=== PATIENT | female | born 1955 | race Hispanic/Latino ===

== ENCOUNTER 2018-07-21 09:20 | Inpatient (IN) | payer OTHER ==
[2018-07-21] MEDS ORDERED: CLINDAMYCIN 600MG/D5W 600 MG/50 ML BAG IV ONE (09:57)
[2018-07-21] MEDS ORDERED: NA CHLORIDE 0.9% 1,000 ML ONE ×4 (09:57→22:45)
[2018-07-21] MEDS ORDERED: ONDANSETRON 4 MG/2 ML VIAL ONE (09:57)
[2018-07-21] MEDS ORDERED: HYDROCODONE/APAP 7.5/325 MG TAB ONE (09:57)
[2018-07-21 10:46] LABS: Potassium 2.6 mmol/L (3.5-5.1)
[2018-07-21 10:48] LABS: Absolute Lymphocytes (CBC) 0.6 K/uL (0.7-4.9); Absolute Monocytes 0.4 K/uL (0.1-1.3); Basophils % 0.1 % (0-1.3); Hematocrit 57.8 % (36.0-45.0); Lymphocytes % 6.5 % (15.3-44.8); MCV 79.3 fL (80-100); MPV 9.8 fL (7.6-11.3); RBC Red Blood Cell Count 7.29 M/uL (3.86-4.86)
[2018-07-21] MEDS ORDERED: POTASSIUM CL SA 10 MEQ TAB PO ONE (10:58)
[2018-07-21] MEDS ORDERED: KCL 20 MEQ/100 mL IVPB 20 MEQ/100 ML BAG IV ONE (10:59)
--- NOTE | 2018-07-21 11:00 | EDPHYS ---
Physician Documentation [facility] Name: Madonna Malone Age: 63 yrs Sex: Female : 1955 Arrival Date: 07/21/2018 Time: 09:21 Bed 6 Private MD: Lily Fairchild ED Physician Keith Senior HPI: 07/21 10:37 This 63 yrs old Female presents to ER via Wheelchair with complaints of Fever, kb Vomiting, Cellulitis-Antibiotics not working. 10:37 The patient presents with cellulitis of the left labia majora and mons pubis. kb Description: erythematous, hot, swollen. Onset: The symptoms/episode began/occurred 6 week(s) ago. Possible cause(s): unknown. Associated signs and symptoms: Pertinent positives: erythema, fever, swelling, Pertinent negatives: discharge, drainage, foreign body sensation, headache, nausea, shortness of breath, vomiting. Modifying factors: the symptoms are alleviated by nothing, the symptoms are aggravated by movement, walking, pressure, touching. Severity of symptoms: At their worst the symptoms were moderate, in the emergency department the symptoms are unchanged. The patient has not experienced similar symptoms in the past. The patient has been recently seen at an urgent care, last week, for similar complaints, was given a prescription for antibiotics. Pt was seen at 3 days ago, diagnosed with cellulitis and put on doxycycline. Pt states swelling and pain are getting worse. Decreased appetite, nausea and vomiting. Historical: - Allergies: 09:42 No Known Allergies; ss - Home Meds: 12:06 Metformin Oral [Active]; Tradjenta oral oral [Active]; Metoprolol Tartrate Oral ph [Active]; loratadine oral oral [Active]; Lisinopril Oral [Active]; Gemfibrozil Oral [Active]; Lexapro Oral [Active]; - PMHx: 12:06 Hypertension; Diabetes - NIDDM; Depression; ph - PSHx: 12:06 Tubal ligation; ph - Immunization history:: Adult Immunizations up to date. - Social history:: Smoking status: Patient/guardian denies using tobacco. - Ebola Screening: : Patient denies exposure to infectious person Patient denies travel to an Ebola-affected area in the 21 days before illness onset. ROS: 10:35 ENT: Negative for injury, pain, and discharge, Neck: Negative for injury, pain, and kb swelling, Cardiovascular: Negative for chest pain, palpitations, and edema, Respiratory: Negative for shortness of breath, cough, wheezing, and pleuritic chest pain, Back: Negative for injury and pain, : Negative for injury, bleeding, discharge, and swelling, MS/Extremity: Negative for injury and deformity, Neuro: Negative for headache, weakness, numbness, tingling, and seizure. 10:35 Constitutional: Positive for chills, fever, malaise, poor PO intake, Negative for body aches, fatigue, weight loss. 10:35 Abdomen/GI: Positive for nausea and vomiting, Negative for abdominal pain, diarrhea, constipation, abdominal cramps, abdominal distension, anorexia. 10:35 Skin: Positive for cellulitis, erythema, swelling, of the mons pubis and left labia majora. Exam: 10:35 Constitutional: This is a well developed, well nourished patient who is awake, alert, kb and in no acute distress. Head/Face: Normocephalic, atraumatic. ENT: Nares patent. No nasal discharge, no septal abnormalities noted. Tympanic membranes are normal and external auditory canals are clear. Oropharynx with no redness, swelling, or masses, exudates, or evidence of obstruction, uvula midline. Mucous membranes moist. Neck: Trachea midline, no thyromegaly or masses palpated, and no cervical lymphadenopathy. Supple, full range of motion without nuchal rigidity, or vertebral point tenderness. No Meningismus. Chest/axilla: Normal chest wall appearance and motion. Nontender with no deformity. No lesions are appreciated. Cardiovascular: Regular rate and rhythm with a normal S1 and S2. No gallops, murmurs, or rubs. Normal PMI, no JVD. No pulse deficits. Respiratory: Lungs have equal breath sounds bilaterally, clear to auscultation and percussion. No rales, rhonchi or wheezes noted. No increased work of breathing, no retractions or nasal flaring. Abdomen/GI: Soft, non-tender, with normal bowel sounds. No distension or tympany. No guarding or rebound. No evidence of tenderness throughout. Back: No spinal tenderness. No costovertebral tenderness. Full range of motion. MS/ Extremity: Pulses equal, no cyanosis. Neurovascular intact. Full, normal range of motion. Neuro: Awake and alert, GCS 15, oriented to person, place, time, and situation. Cranial nerves II-XII grossly intact. Motor strength 5/5 in all extremities. Sensory grossly intact. Cerebellar exam normal. Normal gait. 10:35 Skin: cellulitis, that is moderate, on the left labia majora and mons pubis. Vital Signs: 09:32 Temp 98.7(O); em1 09:42 BP 118 / 74; Pulse 111; Resp 18; Pulse Ox 98% on R/A; Weight 125.19 kg; Height 5 ft. 7 ss in. (170.18 cm); Pain 8/10; 11:54 BP 99 / 59; Pulse 96; Resp 18; Temp 97.8; Pulse Ox 98% on R/A; Pain 5/10; ph 09:42 Body Mass Index 43.23 (125.19 kg, 170.18 cm) ss MDM: 09:33 Patient medically screened. kb 10:35 Data reviewed: vital signs, nurses notes. Data interpreted: Pulse oximetry: on room air kb is 98 %. Interpretation: normal. 10:58 Counseling: I had a detailed discussion with the patient and/or guardian regarding: the kb historical points, exam findings, and any diagnostic results supporting the discharge/admit diagnosis, lab results, the need for further work-up and treatment in the hospital. Physician consultation: Erickson Chirinos MD was contacted at 10:58, regarding admission, to the medical/surgical unit. patient's condition, and will see patient shortly. 07/21 09:33 Order name: CBC with Diff; Complete Time: 11:43 kb 07/21 09:33 Order name: Basic Metabolic Panel; Complete Time: 10:47 kb 07/21 09:33 Order name: Blood Culture Adult (2) kb 07/21 10:56 Order name: CBC Smear Scan; Complete Time: 11:43 EDMS 07/21 11:00 Order name: Urinalysis EDKS 07/21 11:00 Order name: Heart Healthy EDKS 07/21 09:33 Order name: IV Start; Complete Time: 10:10 kb Administered Medications: 10:08 Drug: NS 0.9% 1000 ml Route: IV; Rate: 1000 ml; Site: right hand; ph 10:08 Drug: Zofran 4 mg Route: IVP; Site: right hand; ph 10:09 Drug: Clindamycin 600 mg Route: IVPB; Infused Over: 30 mins; Site: right hand; ph 10:40 Drug: [place] (7.5 mg-325 mg) 1 tabs Route: PO; ph 10:47 CANCELLED (Duplicate Order): Potassium Chloride 20 mEq PO once kb 11:03 Drug: Potassium Chloride 40 mEq Route: PO; ph 11:03 Drug: Potassium Chloride 20 mEq Route: IV; Rate: calculated rate; Site: right hand; ph 12:07 Drug: NS 0.9% 1000 ml Route: IV; Rate: 150 ml/hr; Site: right hand; ph 12:49 Follow up: IV Status: Infusion continued upon admission ss Disposition: 16:42 Co-signature as Attending Physician, Keith Senior MD. rn Disposition: 07/21/18 10:59 Hospitalization ordered by Erickson Chirinos for Inpatient Admission. Preliminary diagnosis are Cellulitis of groin - failed outpatient treatment, Volume depletion, Hypokalemia. - Bed requested for Telemetry/MedSurg (Inpatient). - Status is Inpatient Admission. ss - Condition is Stable. - Problem is new. - Symptoms are unchanged. UTI on Admission? No Signatures: Dispatcher [employer] EDMS Yaquelin Leary, STEVENSON-C OPTICAL ENGINEERING TECHNICIAN-CkLata Tanner Roman, MD MD rn [facility] palomino RN RN ss Hall, Patricia, RN RN ph Corrections: (The following items were deleted from the chart) 10:47 10:47 Potassium Chloride 20 mEq PO once ordered. kb kb 11:39 10:59 Hospitalization Ordered by Erickson Chirinos MD for Inpatient Admission. Preliminary bd diagnosis is Cellulitis of groin - failed outpatient treatment. Bed requested for Telemetry/MedSurg (Inpatient). Status is Inpatient Admission. Condition is Stable. Problem is new. Symptoms are unchanged. UTI on Admission? No. kb 12:40 11:39 07/21/2018 10:59 Hospitalization Ordered by Erickson Chirinos MD for Inpatient kb Admission. Preliminary diagnosis is Cellulitis of groin - failed outpatient treatment. Bed requested for Telemetry/MedSurg (Inpatient). Status is Inpatient Admission. Condition is Stable. Problem is new. Symptoms are unchanged. UTI on Admission? No. bd 12:49 12:40 07/21/2018 10:59 Hospitalization Ordered by Erickson Chirinos MD for Inpatient ss Admission. Preliminary diagnosis is Cellulitis of groin - failed outpatient treatment; Volume depletion; Hypokalemia. Bed requested for Telemetry/MedSurg (Inpatient). Status is Inpatient Admission. Condition is Stable. Problem is new. Symptoms are unchanged. UTI on Admission? No. kb
--- NOTE | 2018-07-21 11:00 | ER ---
Nurse's Notes [facility] Name: Madonna Malone Age: 63 yrs Sex: Female : 1955 Arrival Date: 07/21/2018 Time: 09:21 Bed 6 Private MD: Lily Fairchild Diagnosis: Cellulitis of groin-failed outpatient treatment;Volume depletion;Hypokalemia Presentation: 07/21 09:25 Presenting complaint: Patient states: redness, warm and swelling to groin area that ss began 6 days ago. Patient was seen at urgent care on 07/19/2018 and diagnosed with cellulitis. Patient reports that symptoms have gotten much worse. Transition of care: patient was not received from another setting of care. Onset of symptoms was July 16, 2018. Risk Assessment: Do you want to hurt yourself or someone else? Patient reports no desire to harm self or others. Initial Sepsis Screen: Does the patient meet any 2 criteria? HR > 90 bpm. Does the patient have a suspected source of infection? Yes: Skin breakdown/wound. Care prior to arrival: None. 09:25 Method Of Arrival: Wheelchair ss 09:25 Acuity: TA 3 ss Historical: - Allergies: 09:42 No Known Allergies; ss - Home Meds: 12:06 Metformin Oral [Active]; Tradjenta oral oral [Active]; Metoprolol Tartrate Oral ph [Active]; loratadine oral oral [Active]; Lisinopril Oral [Active]; Gemfibrozil Oral [Active]; Lexapro Oral [Active]; - PMHx: 12:06 Hypertension; Diabetes - NIDDM; Depression; ph - PSHx: 12:06 Tubal ligation; ph - Immunization history:: Adult Immunizations up to date. - Social history:: Smoking status: Patient/guardian denies using tobacco. - Ebola Screening: : Patient denies exposure to infectious person Patient denies travel to an Ebola-affected area in the 21 days before illness onset. Screenin:10 Abuse screen: Denies threats or abuse. Denies injuries from another. Nutritional ph screening: No deficits noted. Tuberculosis screening: No symptoms or risk factors identified. Fall Risk None identified. Assessment: 10:12 General: Appears in no apparent distress. uncomfortable, Behavior is calm, cooperative, ph appropriate for age. Pain: Complains of pain in groin. Neuro: Level of Consciousness is awake, alert, obeys commands, Oriented to person, place, time, situation. Cardiovascular: Capillary refill < 3 seconds in bilateral fingers Patient's skin is warm and dry. Respiratory: Airway is patent Respiratory effort is even, unlabored. GI: Abdomen is round non-distended, obese, Bowel sounds present X 4 quads. Abd is soft and non tender X 4 quads. Reports nausea, vomiting. Derm: Skin is healthy with good turgor, Skin is pink, warm \T\ dry. Musculoskeletal: Circulation, motion, and sensation intact. Range of motion: intact in all extremities. 11:54 Reassessment: Patient appears in no apparent distress at this time. Patient and/or ph family updated on plan of care and expected duration. Pain level reassessed. Patient is alert, oriented x 3, equal unlabored respirations, skin warm/dry/pink. 12:45 Reassessment: Report called to LUDWIG Gunderson. Vital Signs: 09:32 Temp 98.7(O); em1 09:42 BP 118 / 74; Pulse 111; Resp 18; Pulse Ox 98% on R/A; Weight 125.19 kg; Height 5 ft. 7 ss in. (170.18 cm); Pain 8/10; 11:54 BP 99 / 59; Pulse 96; Resp 18; Temp 97.8; Pulse Ox 98% on R/A; Pain 5/10; ph 09:42 Body Mass Index 43.23 (125.19 kg, 170.18 cm) ED Course: 09:21 Patient arrived in ED. as 09:21 Lily Fairchild MD is Private Physician. as 09:23 Yaquelin Leary FNP-C is [facility]. kb 09:23 Keith Senior MD is Attending Physician. kb 09:41 Triage completed. ss 09:42 Arm band placed on right wrist. ss 09:48 Dunia Griggs RN is Primary Nurse. ph 09:55 Inserted saline lock: 22 gauge in right hand, using aseptic technique. ph 10:11 Patient has correct armband on for positive identification. Placed in gown. Bed in low ph position. Call light in reach. Side rails up X 1. Pulse ox on. NIBP on. Warm blanket given. Pillow given. 10:59 Erickson Chirinos MD is Hospitalizing Provider. kb 12:47 No provider procedures requiring assistance completed. Patient admitted, IV remains in ss place. Administered Medications: 10:08 Drug: NS 0.9% 1000 ml Route: IV; Rate: 1000 ml; Site: right hand; ph 10:08 Drug: Zofran 4 mg Route: IVP; Site: right hand; ph 10:09 Drug: Clindamycin 600 mg Route: IVPB; Infused Over: 30 mins; Site: right hand; ph 10:40 Drug: [place] (7.5 mg-325 mg) 1 tabs Route: PO; ph 10:47 CANCELLED (Duplicate Order): Potassium Chloride 20 mEq PO once kb 11:03 Drug: Potassium Chloride 40 mEq Route: PO; ph 11:03 Drug: Potassium Chloride 20 mEq Route: IV; Rate: calculated rate; Site: right hand; ph 12:07 Drug: NS 0.9% 1000 ml Route: IV; Rate: 150 ml/hr; Site: right hand; ph 12:49 Follow up: IV Status: Infusion continued upon admission Outcome: 10:59 Decision to Hospitalize by Provider. kb 12:47 Admitted to Med/surg accompanied by tech, family with patient, via stretcher, room 220, with chart, Report called to LUDWIG Gunderson 12:47 Condition: good 12:47 Instructed on the need for admit, Demonstrated understanding of instructions. 12:49 Patient left the ED. Signatures: Yaquelin Leary, COGNOS ADMINISTRATOR-C COGNOS ADMINISTRATOR-Nurys Deleon Eric em1 Octavia Marie RN RN Dunia Griggs RN RN ph
[2018-07-21 11:40] LABS: Blood Morphology Comment NOT SEEN (NOT SEEN); Platelet Estimate ADEQ; Urine White Blood Cell Casts OK
[2018-07-21] MEDS ORDERED: GLUCAGON 1 MG/VIAL IM PRN ×2 (14:12→14:14)
[2018-07-21] MEDS ORDERED: D50W 25 GM/50 ML SYRINGE IV PRN ×2 (14:12→14:14)
--- NOTE | 2018-07-21 14:26 | P.HP ---
Certification for Inpatient Patient admitted to: Inpatient With expected LOS: >2 Midnights Patient will require the following post-hospital care: None Practitioner: I am a practitioner with admitting privileges, knowledge of patient current condition, hospital course, and medical plan of care. Services: Services provided to patient in accordance with Admission requirements found in Title 42 Section 412.3 of the Code of Federal Regulations Patient History Date of Service: 07/21/18 Reason for admission: cellulitis History of Present Illness: 63 y/o female with h/o DM who came to ER because of infection ijn her left groin /labia area. She has redness and edema for one week. She went to see urgent care 3 days ago and was given Bactrim DS. She took it for 2 days without improvement and went to ER. She is admitted for further treatment. She has no fever chills. She has poor po intake for several days. Allergies No Known Allergies Allergy (Unverified 07/21/18 11:59) Home Medications: Escitalopram Oxalate [Lexapro] 20 mg PO DAILY 07/21/18 Gemfibrozil [Lopid] 600 mg PO BID 07/21/18 Linagliptin [Tradjenta] 5 mg PO DAILY 07/21/18 Lisinopril/Hydrochlorothiazide [Zestoretic 20-25 mg Tablet] 1 each PO DAILY 07/30 Loratadine 10 mg PO DAILY 07/21/18 Metformin HCl 1,000 mg PO BID 07/21/18 Metoprolol Tartrate [Lopressor] 50 mg PO DAILY 07/21/18 - Past Medical/Surgical History Has patient received pneumonia vaccine in the past: No Diabetic: Yes -: Hypertension -: DM -: Hyperlipidemia -: Tubal ligation - Family History Father -: Hypertension Mother -: Heart disease, Hypertension - Social History Smoking Status: Never smoker Alcohol use: No CD- Drugs: No Caffeine use: No Place of Residence: Home Review of Systems 10-point ROS is otherwise unremarkable Physical Examination - Vital Signs Temperature: 97.5 F Blood Pressure: 125/72 Pulse: 98 Respirations: 18 Pulse Ox (%): 97 - Physical Exam General: Alert, In no apparent distress HEENT: Atraumatic, PERRLA, Mucous membr. moist/pink, EOMI, Sclerae nonicteric Neck: Supple, 2+ carotid pulse no bruit, No LAD, Without JVD or thyroid abnormality Respiratory: Clear to auscultation bilaterally, Normal air movement Cardiovascular: Regular rate/rhythm, Normal S1 S2 Gastrointestinal: Normal bowel sounds, No tenderness Musculoskeletal: No tenderness Integumentary: No rashes Neurological: Normal gait, Normal speech, Normal strength at 5/5 x4 extr, Normal tone, Normal affect Lymphatics: No axilla or inguinal lymphadenopathy External genitalia: Other (significant edema and tender from left labia to left groin area. No abscess appreciated) - Studies Laboratory Data (last 24 hrs) 07/21/18 09:50: Sodium 134 L, Potassium 2.6 L*, BUN 25 H, Creatinine 1.30, Glucose 191 H 07/21/18 09:50: WBC 9.0, Hgb 19.7 H, Hct 57.8 H, Plt Count 106 L Assessment and Plan - Problems (Diagnosis) (1) Cellulitis Current Visit: Yes Status: Acute Qualifiers: Site of cellulitis of trunk: groin - Plan --Start IV VAnco Zosyn --Wait blood cx/s --CT scan r/o abscess --Lantus and Insulin; Hold Metformin --IVF and KCL replacement; Recheck K today --DVT prophylaxis - Advance Directives Does patient have a Living Will: No Does patient have a Durable POA for Healthcare: No
[2018-07-21] MEDS: Ringers Lactate 1,000 ML IV SCH ×2 (14:52→23:36)
[2018-07-21] MEDS: VANCOMYCIN 2 GM in NA CHLORIDE 0.9% 500 ML IVPB SCH (15:28)
[2018-07-21 15:55] LABS: Urine Appearance CLOUDY; Urine Blood NEGATIVE (NEG); Urine Color DK YELLOW; Urine Glucose NEGATIVE (NEG); Urine Protein 1+ (NEG); Urine Specific Gravity 1.025 (1.005-1.030); Urine pH 5.5 (5.0-7.0)
[2018-07-21 16:07] LABS: Urine Bilirubin NEGATIVE (NEG); Urine Microscopic Reflex ORDER UMIC
[2018-07-21 16:15] LABS: Urine Bacteria <20 /HPF (<20); Urine RBC <5 /HPF (NONE SEEN)
[2018-07-21 16:16] LABS: Urine Amorphous Sediment TRACE /HPF (NONE SEEN); Urine Culture Reflex Order NOT NEEDED; Urine Mucus SLIGHT /HPF (NONE SEEN)
[2018-07-21] MEDS: INSULIN -REGULAR HUMAN 50 UNIT/0.5 ML ML SQ SCH ×2 (16:30→20:59)
[2018-07-21] MEDS: ENOXAPARIN 30 MG/0.3 ML SQ SCH (17:00)
[2018-07-21] MEDS: PIPER/TAZO/NS 3.375gm 3.375 GM/100 ML BAG IV SCH (17:09)
--- NOTE | 2018-07-21 18:23 | RAD REPORT ---
EXAM DESCRIPTION: CT - Pelvis W/Cont - 07/21/2018 5:33 pm CLINICAL HISTORY: Cellulitis in the perineum, possible abscess COMPARISON: None. TECHNIQUE: Following nonionic IV contrast, axial 5 millimeter thick images of the pelvis were obtain ed. No oral contrast administered. The CT scan was performed using dose optimization techniques as appropriate to a performed exam incl uding one or more of the following: Automated exposure control, adjustment of the mA and/or kV accord ing to patient size (this includes techniques or standardized protocols for targeted exams where dose is matched to indication/reason for exam) and use of iterative reconstruction technique. FINDINGS: Within the lower peritoneal and retroperitoneal spaces there is no acute bowel finding. No free air, free fluid or inflammatory stranding. Urinary bladder, uterus and ovaries show no suspicio us findings. In the left-side of the perineum within the subcutaneous fat and continuing anteriorly along the ante rior aspect of the pubic symphysis there is an extensive air within the fatty tissues. Left-side labi al tissues are thickened and edematous and displaced towards the right. There is edema and stranding in the fatty tissues of the perineum and mons pubis. Stranding extends to the skeletal musculature al robles the medial upper left thigh. No intramuscular mass or hematoma seen. Available history indicates there has been no debridement or drainage procedure performed. The extent of free air and stranding could indicate a Benoit's gangrene. No drainable fluid collections seen. No erosive or destructive bony process. Findings were telephoned to the referring physician 6:15 p.m.. IMPRESSION: Large amount of air and edematous/inflammatory stranding in the fatty tissues in the lef t-side perineum continuing anteriorly and superiorly along the anterior margin of the pubic symphysis . 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 No drainable fluid collection. No extension into the peritoneal or retroperitoneal spaces of the lower pelvis.
[2018-07-21] MEDS: HYDROCODONE/APAP 10/325 TAB PO PRN (18:36)
[2018-07-21 18:39] LABS: Potassium 2.7 mmol/L (3.5-5.1)
[2018-07-21 20:25] LABS: Albumin 2.4 g/dL (3.4-5.0); Bilirubin Direct 0.3 mg/dL (0-0.2); Bilirubin Total 0.6 mg/dL (0.2-1.0); Protein, Total 7.3 g/dL (6.4-8.2)
[2018-07-21] MEDS: GEMFIBROZIL 600 MG TAB PO SCH (20:25)
[2018-07-21] MEDS: KCL 20 MEQ/100 mL IVPB 20 MEQ/100 ML BAG IV SCH ×2 (20:25→23:36)
[2018-07-21] MEDS ORDERED: PROPOFOL 200 MG/20 ML VIAL IV ONE (20:58)
[2018-07-21] MEDS: INSULIN GLARGINE 100 UNITS/ML SQ SCH (20:59)
[2018-07-21] MEDS ORDERED: FENTANYL CITR 100 MCG/2 ML ONE ×2 (20:59→22:12)
[2018-07-21] MEDS ORDERED: VANCOMYCIN 1GM/D5W 200 ML IV SCH (21:00)
[2018-07-21] MEDS ORDERED: DEXAMETHASONE 4 MG/ML VIAL ONE (21:12)
[2018-07-21] MEDS ORDERED: SUCCINYLCHOLINE 20 MG/ML (10 ML) IV ONE (21:12)
--- NOTE | 2018-07-21 21:12 | P.CNS ---
Date of Consult: 07/21/18 PC: This 63-year-old female presents to the emergency room with pain in her left groin and feeling unwell. HPC: Patient has had pain and tenderness in her left groin for the last few days. Has been seen appears clinics and was on oral antibiotics. However she feels is getting larger, still causing increasing pain and discomfort as well as making her feel sick. PMH: Diabetes DN, hypertension PSHx: Previous tubal ligation SOC: No known allergies (medication list reviewed) SYS REVIEW: No cough, wheeze, shortness of breath. No chest pain or palpitations. Just as feel weak over the last few days and sick in general. O/E awake alert vital signs stable HEENT: Not jaundice Chest: Clear ABD: Soft nontender Genitalia: Large amount of swelling to the left labia majora up into the mons LOCO: Intact DATA: CT scan demonstrates considerable abscess with air in the subcutaneous tissue IMPRESSION: Founieres gangrene PLAN: I will to the operating room for incision, drainage, and wipe sharp debridement of this abscess in her left groin. The risks of this procedure have been discussed. The possibility of bleeding, infection, further spread, need for further surgeries and procedures was discussed. She understands and wants to proceed
[2018-07-21] MEDS ORDERED: ROCURONIUM 50 MG/5 ML VIAL IV ONE (21:18)
[2018-07-21] MEDS ORDERED: KETOROLAC 30 MG/ML INJ ONE (21:49)
[2018-07-21] MEDS ORDERED: ONDANSETRON HCL 40 MG/20 ML VIAL ONE (21:49)
[2018-07-21] MEDS ORDERED: HYDRALAZINE HCL 20 MG/ML VIAL ONE (21:58)
[2018-07-21] MEDS ORDERED: METOPROLOL TARTRATE 5 MG/5 ML INJ IV ONE (21:59)
[2018-07-21] MEDS ORDERED: NEOSTIGMINE 1 MG/ML -5 ML SYRINGE ONE (22:05)
[2018-07-21] MEDS ORDERED: GLYCOPYRROLATE 0.2 MG/ML SYR ONE (22:05)
--- NOTE | 2018-07-21 22:36 | P.OP ---
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 With the patient in lithotomy, palpation of the left labia revealed it was firm with miles amount of crepitus fell. AE incision was made in the labia parallel to the groin crease. This brought down through the skin and subcutaneous tissue. We actually encounter air in the tissue that was under pressure we could hear testing as we entered it with the 11 blade. This wound was now extended all the way from the perineal body area up to the superior portion of the mons on the lateral left side. The underlying tissue was noted to have areas of total necrosis with foul-smelling tissue and in the area. This tissue was sharply debrided using a 10 blade and a pickups. It extended all the way from the perineal body area up to the mons itself. This was excise using a 10 blade. Having cleared it back medially to viable tissue, we traced it out laterally could see that it extended up to the inguinal ligament. The area of the external ring was noted and the insertion of the round ligament into the mons area out was excise again with 11 blade removing all this necrotic fatty tissue. The wound was now inspected to ensure adequate hemostasis. There were small petechial capillary hemorrhages. These were controlled using electro cautery. Finally a piece of Surgicel cotton was placed into the base of the wound, and a Kerlix roll soaked in Betadine was packed into it to loosely feel this cavity. The overload the tissue was then approximated back over this loosely. A dressing was then applied. At the end of procedure she was stable when sent to the recovery room. Needle sponge instrument count were correct. No drains were placed. Complications: None Transferred to: Recovery Room Condition: Good
[2018-07-22] MEDS: HYDROCODONE/APAP 10/325 TAB PO PRN (00:24)
[2018-07-22] MEDS: INSULIN GLARGINE 100 UNITS/ML SQ SCH ×2 (00:24→21:16)
[2018-07-22] MEDS: INSULIN -REGULAR HUMAN 50 UNIT/0.5 ML ML SQ SCH ×5 (00:25→21:17)
[2018-07-22] MEDS: PIPER/TAZO/NS 3.375gm 3.375 GM/100 ML BAG IV SCH ×3 (00:36→17:39)
[2018-07-22] MEDS ORDERED: NA CHLORIDE 0.9% 500 ML IV ONE ×2 (01:14→02:46)
[2018-07-22] MEDS ORDERED: NA CHLORIDE 0.9% 500 ML ONE (01:21)
[2018-07-22] MEDS ORDERED: KCL 20 MEQ/100 mL IVPB 20 MEQ/100 ML BAG IV SCH ×2 (01:30→05:00)
[2018-07-22] MEDS ORDERED: NOREPINEPHRINE 4 MG in D5W 250 ML IV PRN (02:46)
[2018-07-22] MEDS: Ringers Lactate 1,000 ML IV SCH ×3 (02:50→17:39)
[2018-07-22 03:31] LABS: Absolute Lymphocytes (CBC) 0.5 K/uL (0.7-4.9); Absolute Monocytes 0.7 K/uL (0.1-1.3); Basophils % 0.1 % (0-1.3); Eosinophils % 0.2 % (0-4.4); Hematocrit 27.3 % (36.0-45.0); Lymphocytes % 3.2 % (15.3-44.8); MCH 27.2 pg (27.0-35.0); MCV 79.9 fL (80-100); MPV 10.2 fL (7.6-11.3); Monocytes % 4.3 % (3.3-12.3); RBC Red Blood Cell Count 3.42 M/uL (3.86-4.86)
[2018-07-22] MEDS ORDERED: NOREPINEPHRINE 4 MG/4 ML VIAL ONE (03:41)
[2018-07-22] MEDS ORDERED: D5W 250 ML IV ONE (03:42)
[2018-07-22 03:45] LABS: Albumin 1.8 g/dL (3.4-5.0); Bilirubin Total 0.5 mg/dL (0.2-1.0); Potassium 3.8 mmol/L (3.5-5.1); Protein, Total 5.8 g/dL (6.4-8.2)
[2018-07-22] MEDS ORDERED: MAGNESIUM SULFATE 1 gm IVPB 1 GM/100 ML BAG IV ONE (03:45)
[2018-07-22] MEDS ORDERED: CALCIUM GLUC 10% INJ 4.65 MEQ in NA CHLORIDE 0.9% 100 ML IV ONE (03:59)
[2018-07-22 04:55] LABS: Blood Morphology Comment NOT SEEN (NOT SEEN); Platelet Estimate ADEQ
[2018-07-22] MEDS ORDERED: CALCIUM GLUCONATE 1 GM IVPB 1 GM/50 ML BAG IV ONE (04:59)
--- NOTE | 2018-07-22 07:54 | RAD REPORT ---
EXAM DESCRIPTION: RAD - Chest Single View - 07/22/2018 2:40 am CLINICAL HISTORY: PICC line placement A preliminary report was provided at the time of the study and reviewed prior to final report. COMPARISON: None. FINDINGS: Portable chest was obtained following placement of a right upper extremity PICC line. The catheter tip is in the proximal SVC.
[2018-07-22] MEDS ORDERED: METOPROLOL TAR 50 MG TAB PO SCH (09:00)
[2018-07-22] MEDS: GEMFIBROZIL 600 MG TAB PO SCH ×2 (09:27→21:16)
[2018-07-22] MEDS: ESCITALOPRAM 20 MG TAB PO SCH (09:27)
[2018-07-22] MEDS ORDERED: PROPOFOL 200 MG/20 ML VIAL IV ONE (12:54)
[2018-07-22] MEDS ORDERED: LIDOCAINE 1% MPF 2 ML AMPULE ONE ×2 (12:54→12:55)
[2018-07-22] MEDS ORDERED: FENTANYL CITR 100 MCG/2 ML ONE (12:56)
[2018-07-22] MEDS ORDERED: NA CHLORIDE 0.9% 1,000 ML ONE (13:31)
[2018-07-22] MEDS ORDERED: MIDAZOLAM HCL 2 MG/2 ML INJ ONE (13:31)
--- NOTE | 2018-07-22 14:24 | CON ---
INFECTIOUS DISEASE CONSULT. 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 The patient also already had surgical debridement done to the left vulvar region. The patient is cur rently being treated with vancomycin and Zosyn. She has significant past medical history of diabetes mellitus, hypertension, hypercholesterolemia, and depression. As per patient, her symptoms started about 2 weeks ago. Normally, she has a pad for preventing accidental incontinence of urine. The pat ient denies any headache, nausea, vomiting, chest pain, abdominal pain. Having discomfort in the per ineal area status post surgery. The patient otherwise doing better today. The pain has decreases th en. Past Medical History: As per HPI. Surgical History: Tubal ligation 26 years ago. Social History: Nonsmoker, nondrinker. Family History: Noncontributory. Medications: Vancomycin, Zosyn. See MARs for other medication. Allergies: NO KNOWN DRUG ALLERGIES. Review of Systems: A 10-point review was performed. Physical Examination: General: This is a 63-year-old female, lying in bed, not in any acute cardiopulmonary distress. Vital Signs: Temperature 98, pulse 68, respiration 15, blood pressure 112/59. HEENT: Unremarkable. Neck: Supple. Lungs: Basal crackles. Heart: S1, S2. Regular. Abdomen: Soft. Bowel sounds present. Extremity: No edema. Swelling and erythematous changes noted in the perineal area, especially vulvar region. Left vulvar region with surgical wound and fresh gauze packing which has blood on it. No foul smell. Ambriz cath eter in place. IV line in place. Laboratory Data: Shows WBC 15,000, hemoglobin 9.3, platelets are 203. Chemistry shows sodium 134, p otassium 3.8, chloride 103, bicarb 26, BUN 19, creatinine 0.8, glucose is 227. Blood cultures and wo und cultures are pending. Pelvis CT shows that the patient has large amount of air and edematous inf lammatory stranding in the fatty tissue in the left side of perineum continuing anteriorly and superi sowmya along the anterior margins of the pubic symphysis. Chest x-ray done today shows portable chest with right extremity PICC line in place. No infiltrates. 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 Leukocyt osis. Pending culture results. Agree to continue Zosyn and vancomycin. Improve nutrition. The pat ient was instructed better control of sugars. We will follow the patient closely. NF/MODL Voice ID: [id number] Report ID: [id number]
--- NOTE | 2018-07-22 15:16 | P.OP ---
Preoperative diagnosis: Complex surgical wound of left groin Postoperative diagnosis: The same Primary procedure: Exploration and debridement of complex surgical wound of left groin Anesthesia: General Estimated blood loss: Less than 10 cc Findings: Clean the wound bed of complex surgical room with small areas of necrosis Operative Technique: The patient brought the Amanda to the operating room placed supine on the table general endotracheal anesthesia, the patient was placed in lithotomy position. The wound that had been placed yesterday evening was now removed. The area of the left groin was prepped with a Betadine solution, and draped in usual aseptic manner. (The Ambriz catheter is still remains) Attention was turned towards the base of this complex surgical wound. There were small areas of necrosis seen on the medial aspect of the wound. These were grasped with a pickups, and sharply excised with a little cutting 11 blade. The wound was fall around its circumference. The medial aspect was reflected back to was to see underneath this flap of fatty tissue. Adequate hemostasis, and debridement having been done, the wound was again packed it lightly with a Kerlix roll soaked in Betadine. A sterile dressing was applied over this. At the end of the procedure she was stable when sent to the recovery room. Needle sponge instrument count were correct. No drains were placed. Complications: None Transferred to: Recovery Room Condition: Good
[2018-07-22] MEDS: VANCOMYCIN 2 GM in NA CHLORIDE 0.9% 500 ML IVPB SCH (15:18)
--- NOTE | 2018-07-22 17:23 | P.PN ---
Subjective Date of Service: 07/22/18 Chief Complaint: cellulitis she is doing better afte I/D and debridement Physical Examination - Vital Signs Temperature: 97 F Blood Pressure: 102/53 Pulse: 82 Respirations: 14 Pulse Ox (%): 95 - Physical Exam General: Alert, In no apparent distress HEENT: Atraumatic, PERRLA, EOMI Neck: Supple, JVD not distended Respiratory: Clear to auscultation bilaterally, Normal air movement Cardiovascular: Regular rate/rhythm, Normal S1 S2 Gastrointestinal: Normal bowel sounds, No tenderness Musculoskeletal: No tenderness Integumentary: No rashes Neurological: Normal speech, Normal tone, Normal affect Lymphatics: No axilla or inguinal lymphadenopathy - Studies Medications List Reviewed: Yes Assessment And Plan - Current Problems (Diagnosis) (1) Gangrene Current Visit: Yes Status: Acute (2) Cellulitis Onset Date: 07/22/18 Current Visit: Yes Status: Acute Qualifiers: Site of cellulitis of trunk: groin - Plan --s/p I/D --Cont IV VAnco Zosyn --Pending wound and blood cx/s --Lantus and Insulin; Hold Metformin --IVF and KCL replacement --DVT prophylaxis --Surgery and ID on board
[2018-07-22] MEDS: ENOXAPARIN 30 MG/0.3 ML SQ SCH (17:39)
[2018-07-23] MEDS: PIPER/TAZO/NS 3.375gm 3.375 GM/100 ML BAG IV SCH ×4 (01:22→23:59)
[2018-07-23] MEDS: Ringers Lactate 1,000 ML IV SCH ×3 (02:39→20:05)
[2018-07-23] MEDS: HYDROCODONE/APAP 10/325 TAB PO PRN ×4 (02:42→20:06)
[2018-07-23 05:10] LABS: Absolute Lymphocytes (CBC) 1.3 K/uL (0.7-4.9); Absolute Monocytes 0.8 K/uL (0.1-1.3); Absolute Neutrophil 8.2 K/uL (1.8-8.0); Basophils % 0.2 % (0-1.3); Eosinophils % 0.3 % (0-4.4); Hematocrit 24.3 % (36.0-45.0); Lymphocytes % 12.2 % (15.3-44.8); MCH 27.4 pg (27.0-35.0); MCV 78.6 fL (80-100); MPV 10.1 fL (7.6-11.3); Monocytes % 7.3 % (3.3-12.3); RBC Red Blood Cell Count 3.09 M/uL (3.86-4.86)
[2018-07-23 05:29] LABS: Albumin 1.7 g/dL (3.4-5.0); Bilirubin Total 0.2 mg/dL (0.2-1.0); Protein, Total 5.5 g/dL (6.4-8.2)
[2018-07-23] MEDS ORDERED: POTASSIUM CL SA 10 MEQ TAB PO ONE (07:59)
[2018-07-23] MEDS: INSULIN -REGULAR HUMAN 50 UNIT/0.5 ML ML SQ SCH ×4 (08:12→20:07)
[2018-07-23] MEDS: GEMFIBROZIL 600 MG TAB PO SCH ×2 (08:12→20:06)
[2018-07-23] MEDS: ESCITALOPRAM 20 MG TAB PO SCH (08:12)
[2018-07-23] MEDS: VANCOMYCIN 2 GM in NA CHLORIDE 0.9% 500 ML IVPB SCH (15:00)
--- NOTE | 2018-07-23 15:08 | P.PN ---
Subjective Date of Service: 07/23/18 Chief Complaint: cellulitis Patient seen and examined at bedside with RN. Chart reviewed. Case discussed with general surgery. Improvement at this time. Review of Systems 10-point ROS is otherwise unremarkable Physical Examination - Vital Signs Temperature: 97.2 F Blood Pressure: 107/54 Pulse: 75 Respirations: 17 Pulse Ox (%): 100 - Physical Exam General: Alert, In no apparent distress, Oriented x3 HEENT: Atraumatic, PERRLA, EOMI Neck: Supple, JVD not distended Respiratory: Clear to auscultation bilaterally, Normal air movement Cardiovascular: Regular rate/rhythm, Normal S1 S2 Gastrointestinal: Normal bowel sounds, No tenderness Musculoskeletal: No tenderness Integumentary: Tenderness/swelling, Erythema, Warmth Neurological: Normal speech, Normal tone, Normal affect Lymphatics: No axilla or inguinal lymphadenopathy External genitalia: Edema - Studies Medications List Reviewed: Yes Assessment And Plan - Current Problems (Diagnosis) (1) Cellulitis Onset Date: 07/22/18 Current Visit: Yes Status: Acute Plan: Left sided Fornier Disease involving the vulva and Perineal area -General Surgery Consutled. Appreciate rec -S/p I&D POD # 1 -IV vanc and redd for now -F.u with Culture Qualifiers: Site of cellulitis of trunk: groin (2) Gangrene Current Visit: Yes Status: Acute Plan: See # 1 Discharge Plan: Home Plan to discharge in: 48 Hours - Code Status/Comfort Care Code Status Assessed: Yes Critical Care: Yes
[2018-07-23] MEDS ORDERED: NOREPINEPHRINE 4 MG in D5W 250 ML IV PRN (15:10)
--- NOTE | 2018-07-23 15:37 | P.PN ---
Date of Service: 07/23/18 S: Patient has no complaints, asking for more solid diet. Pain is controlled. O: The dressing removed, wound is clean. Appears viable. A: Surgically stable P: Wound was changed today to just try Kerlix. Tomorrow I will place a wound VAC with Adaptic incidental. I anticipate leaving that for 48 hr and take care to the operating room for partial closure of this complex surgical wound. Have discussed this with the patient in her family. They understand. She will also get up and ambulate, she appears to be stable enough for transfer to the floor. They are content with the treatment so far.
[2018-07-23 16:05] LABS: Potassium 3.3 mmol/L (3.5-5.1)
[2018-07-23] MEDS ORDERED: POTASSIUM 25 MEQ EFFERV TAB PO ONE (17:00)
[2018-07-23] MEDS: VANCOMYCIN 2.25 GM in NA CHLORIDE 0.9% 500 ML IVPB SCH (17:08)
[2018-07-23] MEDS: ENOXAPARIN 30 MG/0.3 ML SQ SCH (17:08)
[2018-07-23] MEDS: INSULIN GLARGINE 100 UNITS/ML SQ SCH (20:06)
[2018-07-24] MEDS ORDERED: POTASSIUM CL SA 10 MEQ TAB PO ONE ×2 (01:17→06:37)
[2018-07-24] MEDS: Ringers Lactate 1,000 ML IV SCH ×3 (01:59→18:00)
[2018-07-24] MEDS: HYDROCODONE/APAP 10/325 TAB PO PRN (02:04)
[2018-07-24 06:31] LABS: BUN Blood Urea Nitrogen 7 mg/dL (7-18); Bicarbonate 31 mmol/L (21-32); Glucose Level 107 mg/dL (74-106); Potassium 3.8 mmol/L (3.5-5.1); Sodium Level 141 mmol/L (136-145)
[2018-07-24 06:44] LABS: Magnesium 1.9 mg/dL (1.8-2.4)
[2018-07-24] MEDS: INSULIN -REGULAR HUMAN 50 UNIT/0.5 ML ML SQ SCH ×4 (07:30→22:10)
[2018-07-24] MEDS: COLLAGENASE 30 GM OINTMENT TOP SCH (09:00)
[2018-07-24] MEDS: GEMFIBROZIL 600 MG TAB PO SCH ×2 (09:26→22:10)
[2018-07-24] MEDS: ESCITALOPRAM 20 MG TAB PO SCH (09:26)
[2018-07-24] MEDS: PIPER/TAZO/NS 3.375gm 3.375 GM/100 ML BAG IV SCH ×2 (10:26→18:14)
--- NOTE | 2018-07-24 14:08 | P.PN ---
Subjective Date of Service: 07/24/18 Chief Complaint: cellulitis Patient seen and examined at bedside with RN. Chart reviewed. Case discussed with general surgery. Improvement at this time. Review of Systems 10-point ROS is otherwise unremarkable Physical Examination - Vital Signs Temperature: 97 F Blood Pressure: 119/56 Pulse: 80 Respirations: 18 Pulse Ox (%): 96 - Physical Exam General: Alert, In no apparent distress HEENT: Atraumatic, PERRLA, EOMI Neck: Supple, JVD not distended Respiratory: Clear to auscultation bilaterally, Normal air movement Cardiovascular: Regular rate/rhythm, Normal S1 S2 Gastrointestinal: Normal bowel sounds, No tenderness Musculoskeletal: No tenderness Integumentary: Other (Extensively to the perineal area on the left side noted. Improvement from before. No purulent discharge noted.) Neurological: Normal speech, Normal tone, Normal affect Lymphatics: No axilla or inguinal lymphadenopathy - Studies Medications List Reviewed: Yes Assessment And Plan - Current Problems (Diagnosis) (1) Cellulitis Onset Date: 07/22/18 Current Visit: Yes Status: Acute Plan: Left sided Fornier Disease involving the vulva and Perineal area -General Surgery Consutled. Appreciate reccs -S/p I&D POD # 2 -IV vanc and redd for now -F.u with Culture concerning for necrotizing fasciae Qualifiers: Site of cellulitis of trunk: groin (2) Gangrene Current Visit: Yes Status: Acute Plan: See # 1 - Plan Patient's other problems include 1. Morbid obesity 2. Hypertension 3. Hyperlipidemia 4. Sepsis 5. Possible necrotizing fasciitis Discharge Plan: Other Plan to discharge in: 72 Hours - Code Status/Comfort Care Code Status Assessed: Yes Critical Care: No
[2018-07-24] MEDS: VANCOMYCIN 2.25 GM in NA CHLORIDE 0.9% 500 ML IVPB SCH (18:14)
[2018-07-24] MEDS: ENOXAPARIN 30 MG/0.3 ML SQ SCH (18:14)
--- NOTE | 2018-07-24 18:39 | PN ---
Subjective: The patient is lying in bed. Continues to have discomfort in the perineal area. The shalini owens also had surgical debridement done yesterday by surgical team. Objective: Vital Signs: Temperature 97.3, pulse 74, respiration 18, blood pressure 124/66. Lungs: Clear to auscultation. Heart: S1, S2. Regular. Abdomen: Soft. Bowel sounds present. : Perineal area with left vulvar region wound noted. Good granulation tissue. Moderate amount of discharge. No foul smell. Laboratory Data: Shows WBC 10,000, hemoglobin 8.5, platelets are 239. Chemistry shows sodium 141, p otassium 3.8, chloride 104, bicarb 31, BUN 7, creatinine 0.5, glucose 107. Micro Data: Blood cultures, no growth in 24 hours. Wound cultures, gram-positive cocci in pairs and chains, most likely strep. Assessment And Plan: The patient is currently being treated with vancomycin and Zosyn for left vulva r and perineal area necrotizing fasciitis, status post debridement. Leukocytosis is improving. The patient continues to have pain. Recommend to apply lidocaine gel before changing the dressing. Also recommend to put Medihoney with alginate to the wound site. Continue antibiotic and supportive care . Consider long-term acute care. We will follow the patient as needed. NF/MODL Voice ID: [id number] Report ID: [id number]
[2018-07-24] MEDS ORDERED: MORPHINE 5 MG/ML VIAL IV ONE (19:09)
[2018-07-24] MEDS: INSULIN GLARGINE 100 UNITS/ML SQ SCH (22:11)
--- NOTE | 2018-07-24 22:43 | P.PN ---
Date of Service: 07/24/18 S: Patient has no complaints, asking for more solid diet. Pain is controlled. O: T dressing is intact, no erythema seen A: Surgically stable P: I have decided weight 1 more day before applying the wound VAC. I am concerned that in AE anaerobic in [place] that there is potential that her infection could flare up. I think tomorrow we will place the wound VAC. Hopefully will be able to prep the wound bed and perhaps back to the OR on Sunday or Sunday for approximation of these tissue would be appropriate. The patient is stable, and may benefit from transfer to a possible swing bed. I will discuss with the human services case manager in the morning.
[2018-07-25] MEDS: PIPER/TAZO/NS 3.375gm 3.375 GM/100 ML BAG IV SCH ×3 (02:07→16:45)
[2018-07-25] MEDS: Ringers Lactate 1,000 ML IV SCH ×3 (05:34→21:05)
[2018-07-25 06:29] LABS: BUN Blood Urea Nitrogen 5 mg/dL (7-18); Bicarbonate 32 mmol/L (21-32); Glucose Level 116 mg/dL (74-106); Potassium 4.4 mmol/L (3.5-5.1); Sodium Level 143 mmol/L (136-145)
[2018-07-25] MEDS: INSULIN -REGULAR HUMAN 50 UNIT/0.5 ML ML SQ SCH ×4 (07:30→21:02)
[2018-07-25] MEDS: COLLAGENASE 30 GM OINTMENT TOP SCH (09:00)
[2018-07-25] MEDS: ESCITALOPRAM 20 MG TAB PO SCH (09:30)
[2018-07-25] MEDS: GEMFIBROZIL 600 MG TAB PO SCH ×2 (09:30→21:02)
--- NOTE | 2018-07-25 13:58 | P.PN ---
Subjective Date of Service: 07/25/18 Chief Complaint: cellulitis Patient seen and examined at bedside with RN. Chart reviewed. Case discussed with general surgery. Patient is tentatively scheduled for a or procedure tomorrow. Initially the plan was to place wound VAC. ID however recommended long-term acute care facility. The patient however does not have any benefits for long-term acute care for group home facility. Review of Systems 10-point ROS is otherwise unremarkable Physical Examination - Vital Signs Temperature: 97.1 F Blood Pressure: 128/66 Pulse: 69 Respirations: 20 Pulse Ox (%): 95 - Physical Exam General: Alert, In no apparent distress, Obese HEENT: Atraumatic, PERRLA, EOMI Neck: Supple, JVD not distended Respiratory: Clear to auscultation bilaterally, Normal air movement Cardiovascular: Regular rate/rhythm, Normal S1 S2 Gastrointestinal: Normal bowel sounds, No tenderness Musculoskeletal: No tenderness Integumentary: Skin breakdown, Skin lesion, Other (perineal Wound improving. Covered with 4x4. Purulent discharge noted. ) Neurological: Normal speech, Normal tone, Normal affect Lymphatics: No axilla or inguinal lymphadenopathy - Studies Medications List Reviewed: Yes Assessment And Plan - Current Problems (Diagnosis) (1) Cellulitis Onset Date: 07/22/18 Current Visit: Yes Status: Acute Plan: Left sided Fornier Disease involving the vulva and Perineal area -General Surgery Consutled. Appreciate reccs -S/p I&D POD # 3 -IV vanc and redd for now -F.u with Culture concerning for necrotizing fasciae -Extensive Wound care Qualifiers: Site of cellulitis of trunk: groin (2) Gangrene Current Visit: Yes Status: Acute Plan: See # 1 - Plan Patient's other problems include 1. Morbid obesity 2. Hypertension 3. Hyperlipidemia 4. Sepsis 5. Possible necrotizing fasciitis DISPO: Pt does not have any SNF vs LTAC benefits. scheduled for OR procedure apurva again. Discharge Plan: Other Plan to discharge in: 48 Hours - Code Status/Comfort Care Code Status Assessed: Yes Critical Care: No
[2018-07-25] MEDS ORDERED: MORPHINE 5 MG/ML VIAL IV ONE (16:24)
[2018-07-25] MEDS ORDERED: MORPHINE 4 MG/ML SYR IV ONE (16:27)
[2018-07-25] MEDS ORDERED: WATER FOR INJ,STERILE 10 ML ONE (16:44)
[2018-07-25] MEDS: ENOXAPARIN 30 MG/0.3 ML SQ SCH (16:44)
[2018-07-25] MEDS ORDERED: ALTEPLASE 2 MG/VIAL IV SCH (17:00)
[2018-07-25] MEDS: VANCOMYCIN 2.25 GM in NA CHLORIDE 0.9% 500 ML IVPB SCH (17:00)
[2018-07-25] MEDS ORDERED: LIDOCAINE VISCOUS 2% SOLN 15 ML UDC TOP ONE (17:30)
--- NOTE | 2018-07-25 17:42 | P.PN ---
Date of Service: 07/25/18 S: Patient has no complaints, asking for more solid diet. Pain is controlled. O: Wounds are clean, minimal drainage on dressings A: Surgically stable P: This patient, who has an open wound in her right groin consistent with 40 Dylan gangrene, was going to be transferred to another facility. Of for shows she is under funded will be unable to do so. He in the morning time will take her to the operating room for a washout of her wound and application of a wound VAC. It is possible medial to approximate some of the underlying tissue that we had to open in residue adequate debridement of her wound. This is been explained to her in her family. They agreed. And consent forms have been signed.
[2018-07-25] MEDS: VANCOMYCIN 2.5 GM in NA CHLORIDE 0.9% 500 ML IVPB SCH (18:00)
[2018-07-25] MEDS: INSULIN GLARGINE 100 UNITS/ML SQ SCH (21:03)
[2018-07-26] MEDS: PIPER/TAZO/NS 3.375gm 3.375 GM/100 ML BAG IV SCH ×3 (01:15→16:53)
[2018-07-26] MEDS: Ringers Lactate 1,000 ML IV SCH ×3 (02:00→18:00)
[2018-07-26] MEDS: INSULIN -REGULAR HUMAN 50 UNIT/0.5 ML ML SQ SCH ×4 (07:30→21:00)
[2018-07-26] MEDS: COLLAGENASE 30 GM OINTMENT TOP SCH (09:00)
[2018-07-26] MEDS: SODIUM HYPOCHLORITE 0.25% 473 ML TOP SCH (09:00)
[2018-07-26] MEDS: ESCITALOPRAM 20 MG TAB PO SCH (09:00)
[2018-07-26] MEDS: GEMFIBROZIL 600 MG TAB PO SCH ×2 (09:00→22:21)
[2018-07-26] MEDS ORDERED: NA CHLORIDE 0.9% 1,000 ML ONE (10:32)
[2018-07-26] MEDS ORDERED: FENTANYL CITR 100 MCG/2 ML ONE (12:30)
[2018-07-26] MEDS ORDERED: LIDOCAINE 2% MPF 5 ML VIAL ONE (12:31)
[2018-07-26] MEDS ORDERED: MIDAZOLAM HCL 2 MG/2 ML INJ ONE (12:31)
[2018-07-26] MEDS ORDERED: PROPOFOL 200 MG/20 ML VIAL IV ONE ×3 (12:31→13:59)
[2018-07-26] MEDS ORDERED: SUCCINYLCHOLINE 20 MG/ML (10 ML) IV ONE (12:58)
--- NOTE | 2018-07-26 13:39 | P.PN ---
Subjective Date of Service: 07/26/18 Chief Complaint: cellulitis Patient seen and examined at bedside with RN. Chart reviewed. Case discussed with general surgery. Patient is tentatively scheduled for a or procedure today. Review of Systems 10-point ROS is otherwise unremarkable Physical Examination - Vital Signs Temperature: 98.1 F Blood Pressure: 132/64 Pulse: 61 Respirations: 18 Pulse Ox (%): 97 - Physical Exam General: Alert, In no apparent distress HEENT: Atraumatic, PERRLA, EOMI Neck: Supple, JVD not distended Respiratory: Clear to auscultation bilaterally, Normal air movement Cardiovascular: Regular rate/rhythm, Normal S1 S2 Gastrointestinal: Normal bowel sounds, No tenderness Musculoskeletal: No tenderness Integumentary: Skin breakdown, Skin lesion, Tenderness/swelling, Other (Left perineal area improvement noted no purulent granulation tissue on both sides of the wound noted as well) Neurological: Normal speech, Normal tone, Normal affect Lymphatics: No axilla or inguinal lymphadenopathy - Studies Microbiology Data (last 24 hrs): 07/21/18 09:50 Blood - Blood Aerobic Blood Culture - Final No growth in 5 days. 07/21/18 09:50 Blood - Blood Anaerobic Blood Culture - Final No growth in 5 days. Medications List Reviewed: Yes Assessment And Plan - Current Problems (Diagnosis) (1) Cellulitis Onset Date: 07/22/18 Current Visit: Yes Status: Acute Plan: Left sided Fornier Disease involving the vulva and Perineal area -General Surgery Consutled. Appreciate reccs -S/p I&D POD # 4 -IV vanc and zosyn for now -the OR today for I and D and possible wound VAC placement -F.u with Culture concerning for necrotizing fasciae -Extensive Wound care Qualifiers: Site of cellulitis of trunk: groin (2) Gangrene Current Visit: Yes Status: Acute Plan: See # 1 - Plan Patient's other problems include 1. Morbid obesity 2. Hypertension 3. Hyperlipidemia 4. Sepsis 5. Possible necrotizing fasciitis DISPO: Currently awaiting clinical improvement at this time. OR today for possible I and D Discharge Plan: Home Plan to discharge in: Greater than 2 days - Code Status/Comfort Care Code Status Assessed: Yes Critical Care: No
[2018-07-26] MEDS ORDERED: NALOXONE HCL 2 MG/2 ML VIAL ONE (14:26)
[2018-07-26] MEDS ORDERED: ALBUTEROL INHALER 60 PUFF/8 GM IH ONE (14:26)
--- NOTE | 2018-07-26 14:27 | P.OP ---
Preoperative diagnosis: Complex surgical wound Postoperative diagnosis: The same Primary procedure: Exploration and debridement of complex surgical wound of left groin Secondary procedure: Closure closure of the wound Anesthesia: General Estimated blood loss: Less than 20 cc Findings: Clean the wound bed of complex surgical room with small areas of necrosis Operative Technique: The patient brought the Amanda to the operating room placed supine on the table general endotracheal anesthesia, the patient was placed in lithotomy position. The wound that had been placed yesterday evening was now removed. The area of the left groin was prepped with a Betadine solution, and draped in usual aseptic manner. Attention was turned towards wound cavity. Both the medial and lateral edges of these wounds were now retracted backward which in retractors. We were able to pulse lavage the underlying tissue. It is clean viable. There is some fibrinous exudate that was scraped off of the head tissue. Small areas measuring less than half a cm of remaining necrotic tissue were sharply excised using both the 11 scalpel and the Metzenbaum scissors. The wound crevices were particularly at the quarters and reflected skin edges were carefully declines. The whole wound was pulse lavaged with approximately 1800 cc of fluid. At this point we were able to place a Gibran-Myles drain into the base of the wound debrided out superiorly we just lateral to the mons. The skin was now approximated with interrupted sutures of chromic. During this we were able keep suction are Gibran-Myles drain. It helped to collapse and all the tissue down the limb NAD space. A good seal having been attained, the skin edges round covered with derma nichols as well. Did Gibran-Myles drain was fixed with a nylon suture. At the end of the procedure she was stable when sent to the recovery room. Needle sponge instrument count were correct. No drains were placed. The Ambriz catheter was also removed. Complications: None Drain(s): JOVAN drain Transferred to: Recovery Room Condition: Good
[2018-07-26] MEDS: MEPERIDINE HCL 50 MG/ML AMP ONE ×4 (14:42→15:02)
[2018-07-26] MEDS: ENOXAPARIN 30 MG/0.3 ML SQ SCH (16:53)
[2018-07-26] MEDS: HYDROCODONE/APAP 10/325 TAB PO PRN (17:53)
[2018-07-26] MEDS: VANCOMYCIN 2.5 GM in NA CHLORIDE 0.9% 500 ML IVPB SCH (17:54)
[2018-07-26] MEDS: INSULIN GLARGINE 100 UNITS/ML SQ SCH ×2 (21:00→22:21)
--- NOTE | 2018-07-26 21:46 | RAD REPORT ---
EXAM DESCRIPTION: USExtremity Venous [facility] Ltd07/26/2018 9:27 pm CLINICAL HISTORY: Right arm pain and swelling COMPARISON: None FINDINGS: Echogenic material consistent with acute thrombus is seen within the right axillary, brach ial and basilic veins. The right internal jugular, right subclavian, right cephalic, right veins are generally compressible and demonstrate augmentation. Doppler demonstrates good flow. IMPRESSION: Acute thrombus within the right axillary,basilic and brachial veins. The patient's nurse Cindy Hartman was notified
[2018-07-27] MEDS: PIPER/TAZO/NS 3.375gm 3.375 GM/100 ML BAG IV SCH ×4 (00:04→22:15)
[2018-07-27] MEDS: Ringers Lactate 1,000 ML IV SCH ×4 (02:00→17:57)
[2018-07-27] MEDS: INSULIN -REGULAR HUMAN 50 UNIT/0.5 ML ML SQ SCH ×5 (07:30→22:17)
[2018-07-27] MEDS: ESCITALOPRAM 20 MG TAB PO SCH (08:13)
[2018-07-27] MEDS: HYDROCODONE/APAP 10/325 TAB PO PRN ×2 (08:14→17:37)
[2018-07-27] MEDS: GEMFIBROZIL 600 MG TAB PO SCH ×2 (08:14→22:15)
[2018-07-27] MEDS: SODIUM HYPOCHLORITE 0.25% 473 ML TOP SCH (09:00)
[2018-07-27 12:27] LABS: Absolute Lymphocytes (CBC) 1.4 K/uL (0.7-4.9); Absolute Monocytes 0.6 K/uL (0.1-1.3); Absolute Neutrophil 7.5 K/uL (1.8-8.0); Basophils % 0.6 % (0-1.3); Eosinophils % 1.7 % (0-4.4); Hematocrit 26.4 % (36.0-45.0); Lymphocytes % 14.2 % (15.3-44.8); MCH 27.6 pg (27.0-35.0); MCV 81.4 fL (80-100); MPV 8.9 fL (7.6-11.3); Monocytes % 6.2 % (3.3-12.3); RBC Red Blood Cell Count 3.25 M/uL (3.86-4.86)
--- NOTE | 2018-07-27 12:59 | PN ---
Subjective: The patient seen for followup on cellulitis and abscess, status post I and D of the yoshi lavonne wound site and closure with a JOVAN drain in place. The patient also has been found to have blood clot on her right arm where the PICC line was placed. The patient's PICC line has been removed since then. Objective: Vital Signs: Temperature 97, pulse 69, respiration 18, blood pressure 133/62. Lungs: Basal crackles. Heart: S1, S2. Regular. Abdomen: Soft, nontender. Bowel sounds positive. Extremity: Right arm with 2+ edema. Laboratory Data: No new labs available at this time. Assessment And Plan: Perineal cellulitis and abscess, status post incision and drainage and closure. Recommend to put Xeroform gauze to the wound site. Continue IV antibiotic. Recommend peripheral l ine to replace, awaiting PICC line. We will follow the patient closely. ELA/MODL Voice ID: [id number] Report ID: [id number]
--- NOTE | 2018-07-27 13:45 | P.PN ---
Date of Service: 07/27/18 S: Patient has no specific complaints today, says she feels pretty good. Has some soreness in her right arm. O: Vital signs are stable, Gibran-Myles drain in the wound working well. Wound looks clean and dried. IV in the right arm apparently clotted, where she had her midline IV catheter. Catheter is been removed. Patient is also voiding well around. A: Patient is surgically stable. I anticipate discharging her Sunday. I have discussed this with the patient and family and they are comfortable with this. P: Mobilize patient, ambulated always, continue incentive spirometry.
[2018-07-27 14:14] LABS: Blood Morphology Comment NOT SEEN (NOT SEEN); Platelet Estimate ADEQ; Urine White Blood Cell Casts OK
--- NOTE | 2018-07-27 16:50 | PN ---
Subjective: Currently she is lying in bed. She looks comfortable. No chest pain. No abdominal lyubov n. She had heavy lunch. Her is at the bedside. No fever or chills overnight. Review of Systems: Otherwise, 10 points negative. Objective: Vital Signs: Blood pressure 132/68, respiratory rate 17, pulse 66, temperature 97. General: The patient is alert and oriented x3. Does not look in any distress. HEENT: Atraumatic, normocephalic. PERRLA. Oral mucosa moist. Neck: Supple. No JVD. No carotid bruits. Chest: Clear to auscultation. Good air entry. Heart: Regular rate and rhythm. S1, S2 normal. No gallop or murmur. Abdomen: Soft, nontender. No masses. No hepatosplenomegaly. Obese. Positive bowel sounds. Extremities: No clubbing, cyanosis, or edema. No calf tenderness. She has a PICC line now in the r ight arm. She had a JOVAN drain in the wound in the perineal area. Laboratory Data: Today, CBC was normal except for hemoglobin of 8.9. Chemistry within normal except for glucose 113, calcium 8.1. Blood culture 5 days, negative. Left groin culture showed skin debora with gram-positive cocci in clusters. Assessment And Plan: 1.Left groin Benoit disease involving the vulva and perineal area, status post incision and draina ge, postop day 5. The patient on IV antibiotic with Zosyn and vancomycin. She had again another inc ision and drainage, debridement of the area yesterday, still with JOVAN drain. Continue IV antibiotic w ith Zosyn and vancomycin. ID following the patient. It seems like general surgery willing to discha rge the patient on Sunday and a course of antibiotic will be given on ID recommendation. 2.Morbid obesity. Advised diet and exercise as outpatient. 3.Hypertension, well controlled today. Continue home medication. 4.Anemia, postop. 5.Hyperlipidemia, on gemfibrozil 600 mg twice a day. 6.Depression, on Lexapro. Continue. 7.Diabetes mellitus. Continue Lantus 10 units at bedtime. Well-controlled. 8.Discharge plan on Sunday. 9.Deep vein thrombosis prophylaxis with Lovenox. JOSEPH/ARACELIS Voice ID: [id number] Report ID: [id number]
[2018-07-27] MEDS: ENOXAPARIN 30 MG/0.3 ML SQ SCH (17:37)
[2018-07-27] MEDS: VANCOMYCIN 2.5 GM in NA CHLORIDE 0.9% 500 ML IVPB SCH (17:39)
[2018-07-27] MEDS: INSULIN GLARGINE 100 UNITS/ML SQ SCH (22:18)
[2018-07-28] MEDS: Ringers Lactate 1,000 ML IV SCH ×3 (02:00→18:00)
[2018-07-28] MEDS: PIPER/TAZO/NS 3.375gm 3.375 GM/100 ML BAG IV SCH ×3 (05:21→20:43)
[2018-07-28] MEDS: SODIUM HYPOCHLORITE 0.25% 473 ML TOP SCH (09:24)
[2018-07-28] MEDS: ESCITALOPRAM 20 MG TAB PO SCH (09:24)
[2018-07-28] MEDS: GEMFIBROZIL 600 MG TAB PO SCH ×2 (09:24→20:43)
[2018-07-28] MEDS: INSULIN -REGULAR HUMAN 50 UNIT/0.5 ML ML SQ SCH ×3 (11:30→20:44)
--- NOTE | 2018-07-28 17:21 | PN ---
Subjective: Currently the patient is lying in bed. She looks comfortable. She has no chest pain, n o abdominal pain. No fever, no chills overnight. She continued to have drainage in her wound drain. She is able to eat well. Review of Systems: Otherwise negative. Objective: Vital Signs: Blood pressure is 127/60, respiratory rate 18, pulse 71, temperature 97. General: The patient is alert and oriented x3. Does not look in any distress. HEENT: Atraumatic, normocephalic. PERRLA. Oral mucosa is moist. Neck: Supple. No JVD. No bruits. Chest: Clear to auscultation. Good air entry. Heart: Regular rate and rhythm. S1, S2 normal. No gallop, rub or murmur. Abdomen: Soft, nontender. No masses. No hepatosplenomegaly. Obese. Positive bowel sounds. Extremities: No clubbing, cyanosis, or edema. Wound area with dressing and drain noted. Neuro: Grossly intact. Laboratory Data: CBC today is normal except for hemoglobin 8.9. Chemistry within normal. Glucose i n the range of 103 to 193. Assessment And Plan: 1.Left groin Benoit disease involving the vulva and perineal area. Status post incision and drain age postop day 6. Continue IV antibiotic with General Surgery recommendation with vancomycin and Zos yn. The patient had incision and drainage, debridement of the area on July 26 as well. She sta yed with JOVAN drain currently. Hopefully tomorrow morning and according to the General Surgery we can switch her to oral antibiotics, discharge her home. We will discuss that with Infectious Disease for optimal course of antibiotic. 2.Morbid obesity. Advised to stay active with discharge with diet and exercise. 3.Hypertension, well controlled. 4.Anemia, postop stable. 5.Hyperlipidemia. She is on gemfibrozil twice a day. 6.Diabetes mellitus, well controlled. Continue Lantus at nighttime 10 unit. 7.Deep vein thrombosis prophylaxis with Lovenox 30, given her mild renal insufficiency. 8.Discharge plan hopefully tomorrow morning if Surgery is okay after discussing with the ID the opti mal course of oral antibiotics. JOSEPH/ARACELIS Voice ID: [id number] Report ID: [id number]
[2018-07-28] MEDS: ENOXAPARIN 30 MG/0.3 ML SQ SCH (18:01)
[2018-07-28] MEDS: HYDROCODONE/APAP 10/325 TAB PO PRN (18:04)
--- NOTE | 2018-07-28 18:04 | P.PN ---
Date of Service: 07/28/18 S: Patient doing well, slow to get out of bed. Has some pain in her right arm, but states swelling is less in pain is less today. Voiding well on her own O: Vital signs are stable, minimal amount through JOVAN drain. Right arm is less swollen today. H&H low. Surgical wound looks good, staying clean A: Surgically stable P: Anticipate discharge tomorrow. She will go home on oral antibiotics if Infectious Disease agrees. She will follow with me in my office.
[2018-07-28] MEDS: VANCOMYCIN 2.5 GM in NA CHLORIDE 0.9% 500 ML IVPB SCH (18:07)
[2018-07-28] MEDS: INSULIN GLARGINE 100 UNITS/ML SQ SCH (20:45)
[2018-07-29] MEDS: Ringers Lactate 1,000 ML IV SCH ×5 (02:00→23:06)
[2018-07-29] MEDS: PIPER/TAZO/NS 3.375gm 3.375 GM/100 ML BAG IV SCH ×3 (04:28→21:21)
[2018-07-29] MEDS: INSULIN -REGULAR HUMAN 50 UNIT/0.5 ML ML SQ SCH ×4 (07:30→21:21)
[2018-07-29] MEDS: ESCITALOPRAM 20 MG TAB PO SCH (08:34)
[2018-07-29] MEDS: GEMFIBROZIL 600 MG TAB PO SCH ×2 (08:34→21:21)
[2018-07-29] MEDS: SODIUM HYPOCHLORITE 0.25% 473 ML TOP SCH (08:34)
--- NOTE | 2018-07-29 12:51 | P.PN ---
Subjective Date of Service: 07/29/18 Chief Complaint: cellulitis Patient seen and examined at bedside with RN. Chart reviewed. Case discussed with general surgery. Patient is currently doing well overall. No complaints to offer overnight. Has been doing well postprocedure. Review of Systems 10-point ROS is otherwise unremarkable Physical Examination - Vital Signs Temperature: 97.4 F Blood Pressure: 127/66 Pulse: 64 Respirations: 18 Pulse Ox (%): 97 - Physical Exam General: Alert, In no apparent distress, Obese HEENT: Atraumatic, PERRLA, EOMI Neck: Supple, JVD not distended Respiratory: Clear to auscultation bilaterally, Normal air movement Cardiovascular: Regular rate/rhythm, Normal S1 S2 Gastrointestinal: Normal bowel sounds, No tenderness Musculoskeletal: No tenderness Integumentary: Skin breakdown, Skin lesion, Other (Writing weaned wound now closed. JOVAN drain in place healing well no purulent discharge noted) Neurological: Normal speech, Normal tone, Normal affect Lymphatics: No axilla or inguinal lymphadenopathy - Studies Medications List Reviewed: Yes Assessment And Plan - Plan Assessment and Plan: 1. Left groin Benoit disease involving the vulva and perineal area. - Status post incision and drainage postop day 3. - Continue IV antibiotic with General Surgery recommendation with vancomycin and Zosyn. - Will switch to PO abx per surgery reccs in 24 hrs - Wound care 2. Morbid obesity. -Advised to stay active with discharge with diet and exercise. 3. Hypertension, well controlled. 4. Anemia, postop stable. 5. Hyperlipidemia. - She is on gemfibrozil twice a day. 6. Diabetes mellitus, well controlled. - Continue Lantus at nighttime 10 unit. 7. Deep vein thrombosis of Right upper arm - 2.2 to PICC line placement - PO eliquis for now Dispo: The patient clinical improvement at this time. Will recheck hemoglobin tomorrow morning and wound side for active bleeding. The patient has been tolerating Eliquis well will go ahead and discharge patient in 24-48 hr. Discharge Plan: Home Plan to discharge in: 48 Hours - Code Status/Comfort Care Code Status Assessed: Yes Critical Care: No
--- NOTE | 2018-07-29 15:20 | P.PN ---
Date of Service: 07/29/18 S: Apart from swelling in right arm, patient has no complaints today. She thought she was going home today. O: Surgical wound is clean, JOVAN drain in place. White cell count normal. A: Surgically stable, being treated for her right arm clot. P: Patient is being started on Eliquis. When she is stable eyes, will be discharged. I have asked the nurses to arrange for home health care.
[2018-07-29 15:29] LABS: Potassium 3.5 mmol/L (3.5-5.1)
[2018-07-29] MEDS: VANCOMYCIN 2.5 GM in NA CHLORIDE 0.9% 500 ML IVPB SCH (18:20)
--- NOTE | 2018-07-29 19:49 | PN ---
Subjective: The patient lying in bed. No new acute events. Chart reviewed. Objective: Vital signs: Temperature 97, pulse 64, blood pressure 127/66. Lungs: Basal crackles. Heart: S1, S2. Regular. Abdomen: Soft, nontender. Bowel sounds positive. Extremity: Trace edema to the right upper extremity. Laboratory Data: Shows WBC 9.7, hemoglobin 8.9, platelets are 297. Chemistry shows sodium 144, pota ssium 4, chloride 110, bicarb 29, BUN 5, creatinine 0.7, glucose 113. Micro data; blood cultures no growth. Wound cultures from the left groin area mixed skin debora. Current Antibiotic: Includes Zosyn and vancomycin. Assessment And Plan: Left vulvar abscess, status post incision and drainage. The patient is current ly on vancomycin and Zosyn. Continue antibiotic and wound care. We will follow the patient as irina ruiz Apply Xeroform to the wound site. JOVAN drain to be monitored. We will follow the patient closely. NF/MODL Voice ID: [id number] Report ID: [id number]
[2018-07-29] MEDS: APIXABAN 5 MG TABLET PO SCH (21:20)
[2018-07-29] MEDS: INSULIN GLARGINE 100 UNITS/ML SQ SCH (21:23)
[2018-07-30] MEDS: Ringers Lactate 1,000 ML IV SCH ×4 (02:00→18:00)
[2018-07-30 04:25] LABS: Absolute Lymphocytes (CBC) 1.1 K/uL (0.7-4.9); Absolute Monocytes 0.5 K/uL (0.1-1.3); Absolute Neutrophil 6.4 K/uL (1.8-8.0); Basophils % 0.5 % (0-1.3); Eosinophils % 1.9 % (0-4.4); Hematocrit 24.4 % (36.0-45.0); Lymphocytes % 13.9 % (15.3-44.8); MCH 27.1 pg (27.0-35.0); MCV 80.4 fL (80-100); MPV 8.9 fL (7.6-11.3); RBC Red Blood Cell Count 3.03 M/uL (3.86-4.86)
[2018-07-30 04:49] LABS: Albumin 1.9 g/dL (3.4-5.0); Bilirubin Total 0.3 mg/dL (0.2-1.0); Potassium 3.3 mmol/L (3.5-5.1); Protein, Total 5.9 g/dL (6.4-8.2)
[2018-07-30] MEDS: PIPER/TAZO/NS 3.375gm 3.375 GM/100 ML BAG IV SCH ×3 (05:20→21:00)
[2018-07-30 06:39] LABS: Anisocytosis 1+; Blood Morphology Comment NOTED (NOT SEEN); Platelet Estimate ADEQ; Polychromasia 1+
[2018-07-30] MEDS: INSULIN -REGULAR HUMAN 50 UNIT/0.5 ML ML SQ SCH ×4 (07:30→21:00)
[2018-07-30] MEDS: APIXABAN 5 MG TABLET PO SCH ×2 (09:36→21:15)
[2018-07-30] MEDS: ESCITALOPRAM 20 MG TAB PO SCH (09:37)
[2018-07-30] MEDS: SODIUM HYPOCHLORITE 0.25% 473 ML TOP SCH (09:37)
[2018-07-30] MEDS: GEMFIBROZIL 600 MG TAB PO SCH ×2 (09:37→21:15)
[2018-07-30] MEDS: HYDROCODONE/APAP 10/325 TAB PO PRN (11:39)
--- NOTE | 2018-07-30 14:31 | P.DS ---
Admission Date: 07/21/18 Discharge Date: 07/30/18 Disposition: ROUTINE DISCHARGE Discharge Condition: GOOD Reason for Admission: cellulitis Consultations: general Surgery Procedures: 2 I&D Néstor Drain placement Brief History of Present Illness: 63 y/o female with h/o DM who came to ER because of infection ijn her left groin /labia area. She has redness and edema for one week. She went to see urgent care 3 days ago and was given Bactrim DS. She took it for 2 days without improvement and went to ER. She is admitted for further treatment. She has no fever chills. She has poor po intake for several days. Hospital Course: Discharge Diagnosis: 1. Left groin Benoit disease involving the vulva and perineal area 2. Morbid obesity. 3. Hypertension, well controlled. 4. Anemia, postop stable. 5. Hyperlipidemia. 6. Diabetes mellitus, well controlled. 7. Deep vein thrombosis of Right upper arm Hospital Course: Overall during the hospital stay patient remained stable Patient was initially admitted to the hospital for: Left groin Benoit disease involving the vulva and perineal area. General surgery was consulted. Patient was taken to the OR for incision and drainage. Patient was started on IV antibiotics per General Surgery. Initially there was a concern for necrotizing fasciitis, so patient was taken back to the OR for another incision and drainage to clean out the muscle around the area as well. At that time patient was still continued on IV vancomycin and Zosyn. After the 2nd debridement patient had marked improvement in her incision infection area. Patient then was taken back for another incision and drainage where her wound was sutured together and NÉSTOR drain was placed. Patient had wound cultures done which was consistent with anaerobic bacteria. Patient was thus switched over to p.o. antibiotics on discharge. Patient also had home health arranged for wound care to be done at the house. Patient initially had a PICC line placement due to the need for long-term antibiotics however the PICC line was removed as patient started noticing swelling and pain in the right upper arm. At that time the ultrasound of the right upper arm was done which was consistent with DVT in the axillary and cephalic and brachial veins. Patient was started on p.o. Eliquis at that time. Patient's H&H did remain stable while here in the hospital and thus patient was discharged home under stable condition. Patient was educated extensively on wound care, blood thinners, the need to follow up with general surgery in primary care provider. Patient demonstrated understanding and thus was discharged home under stable condition. 2. Morbid obesity. -Advised to stay active with discharge with diet and exercise. 3. Hypertension, well controlled. 4. Anemia, postop stable. 5. Hyperlipidemia. - She is on gemfibrozil twice a day. 6. Diabetes mellitus, well controlled. - Continue Lantus at nighttime 10 unit. 7. Deep vein thrombosis of Right upper arm - 2.2 to PICC line placement - PO eliquis for now Vital Signs/Physical Exam: Temp Pulse Resp BP Pulse Ox 98.4 F 65 16 134/66 96 07/30/18 12:00 07/30/18 12:00 07/30/18 12:00 07/30/18 12:00 07/30/18 12:00 General: Alert, In no apparent distress, Obese HEENT: Atraumatic, PERRLA, EOMI Neck: Supple, JVD not distended Respiratory: Clear to auscultation bilaterally, Normal air movement Cardiovascular: Regular rate/rhythm, Normal S1 S2 Gastrointestinal: Normal bowel sounds, No tenderness Musculoskeletal: No tenderness Integumentary: Other (left sided Incision c/D/I in the perineal Area. NÉSTOR drain in place draining serasanginous fluids) Neurological: Normal speech, Normal tone, Normal affect Lymphatics: No axilla or inguinal lymphadenopathy Laboratory Data at Discharge: WBC 8.2 K/uL (4.3-10.9) D 07/30/18 03:33 Hgb 8.2 g/dL (12.0-15.0) L 07/30/18 03:33 Hct 24.4 % (36.0-45.0) L 07/30/18 03:33 Plt Count 249 K/uL (152-406) 07/30/18 03:33 Sodium 143 mmol/L (136-145) 07/30/18 03:33 Potassium 3.3 mmol/L (3.5-5.1) L 07/30/18 03:33 BUN 5 mg/dL (7-18) L 07/30/18 03:33 Creatinine 0.80 mg/dL (0.55-1.3) 07/30/18 03:33 Glucose 95 mg/dL (74-106) 07/30/18 03:33 Magnesium 1.9 mg/dL (1.8-2.4) 07/24/18 06:00 Total Bilirubin 0.3 mg/dL (0.2-1.0) 07/30/18 03:33 AST 12 U/L (15-37) L 07/30/18 03:33 ALT 15 U/L (12-78) 07/30/18 03:33 Alkaline Phosphatase 45 U/L (45-117) 07/30/18 03:33 Home Medications: Escitalopram Oxalate [Lexapro] 20 mg PO DAILY 07/21/18 Gemfibrozil [Lopid*] 600 mg PO BID 07/21/18 Linagliptin [Tradjenta] 5 mg PO DAILY 07/21/18 Lisinopril/Hydrochlorothiazide [Zestoretic 20-25 mg Tablet] 1 each PO DAILY 07/30 Loratadine 10 mg PO DAILY 07/21/18 Metformin HCl 1,000 mg PO BID 07/21/18 Metoprolol Tartrate [Lopressor*] 50 mg PO DAILY 07/21/18 Apixaban [Eliquis] 5 mg PO BID #74 tablet 07/30/18 Clindamycin HCl [Cleocin HCl] 300 mg PO QID #56 capsule 07/30/18 New Medications: Apixaban [Eliquis] 5 mg PO BID #74 tablet Clindamycin HCl [Cleocin HCl] 300 mg PO QID #56 capsule Patient Discharge Instructions: Please f.u with Dr demarco in 1 to 2 days post discharge. -you are given NÉSTOR drain and wound cleaning instructions. -You will also have Home health arranged for home wound care. Please f.u with PCP in 1 to 2 week post discharge. -you are started on Eliquis (dose as mentioned below ) due to DVT in the right arm due to PICC line placement. You will need to have a repeat CBC in 3 to 4 days to ensure your hemoglobin is stable. You will also need to have US of right upper extermity in 3 months to reevaluate the DVT. New medication. Eliquis 10mg BID for 7 days and 5mg BID there after. Clindamycin 450mg qid for 14 days Diet: Regular Activity: Ad lauryn Followup: Jairon Demarco MD [ACTIVE - CAN ADMIT] - 1 Week Lily Fairchild MD [Primary Care Provider] -
[2018-07-30] MEDS: VANCOMYCIN 2.5 GM in NA CHLORIDE 0.9% 500 ML IVPB SCH (17:37)
[2018-07-30] MEDS: INSULIN GLARGINE 100 UNITS/ML SQ SCH (21:15)
[2018-07-30] MEDS: CLINDAMYCIN HCL 150 MG CAP PO SCH (23:17)
[2018-07-31] MEDS: Ringers Lactate 1,000 ML IV SCH ×2 (02:00→10:00)
[2018-07-31 04:51] LABS: Absolute Lymphocytes (CBC) 1.1 K/uL (0.7-4.9); Absolute Monocytes 0.5 K/uL (0.1-1.3); Absolute Neutrophil 5.1 K/uL (1.8-8.0); Basophils % 0.3 % (0-1.3); Eosinophils % 1.5 % (0-4.4); Hematocrit 23.1 % (36.0-45.0); Lymphocytes % 16.2 % (15.3-44.8); MCV 81.1 fL (80-100); MPV 8.9 fL (7.6-11.3); Monocytes % 6.8 % (3.3-12.3); RBC Red Blood Cell Count 2.85 M/uL (3.86-4.86)
[2018-07-31 04:54] LABS: Bilirubin Total 0.3 mg/dL (0.2-1.0); Potassium 3.7 mmol/L (3.5-5.1)
[2018-07-31] MEDS: CLINDAMYCIN HCL 150 MG CAP PO SCH ×4 (05:25→23:36)
[2018-07-31] MEDS: INSULIN -REGULAR HUMAN 50 UNIT/0.5 ML ML SQ SCH ×4 (07:30→21:45)
[2018-07-31] MEDS: APIXABAN 5 MG TABLET PO SCH ×2 (09:00→21:44)
[2018-07-31] MEDS: GEMFIBROZIL 600 MG TAB PO SCH ×2 (09:00→21:44)
[2018-07-31] MEDS: ESCITALOPRAM 20 MG TAB PO SCH (09:00)
[2018-07-31] MEDS: SODIUM HYPOCHLORITE 0.25% 473 ML TOP SCH (09:00)
[2018-07-31] MEDS ORDERED: DIPHENHYDRAMINE 50 MG/ML VIAL IV ONE (10:33)
[2018-07-31] MEDS ORDERED: NA CHLORIDE 0.9% 0 ML ONE (13:41)
[2018-07-31] MEDS ORDERED: NA CHLORIDE 0.9% 100 ML ONE (13:57)
--- NOTE | 2018-07-31 16:05 | P.PN ---
Subjective Date of Service: 07/31/18 Chief Complaint: cellulitis Patient seen and examined at bedside with RN. Chart reviewed. Patient awaiting home health set up this time Review of Systems 10-point ROS is otherwise unremarkable Physical Examination - Vital Signs Temperature: 98 F Blood Pressure: 126/73 Pulse: 60 Respirations: 18 Pulse Ox (%): 99 - Physical Exam General: Alert, In no apparent distress HEENT: Atraumatic, PERRLA, EOMI Neck: Supple, JVD not distended Respiratory: Clear to auscultation bilaterally, Normal air movement Cardiovascular: Regular rate/rhythm, Normal S1 S2 Gastrointestinal: Normal bowel sounds, No tenderness Musculoskeletal: No tenderness Integumentary: No rashes Neurological: Normal speech, Normal tone, Normal affect Lymphatics: No axilla or inguinal lymphadenopathy - Studies Medications List Reviewed: Yes Assessment And Plan - Plan Assessment and Plan: 1. Left groin Benoit disease involving the vulva and perineal area. - Status post incision and drainage postop day 5. -Patient is no switched to oral antibiotics and is just awaiting home health set up 2. Morbid obesity. -Advised to stay active with diet and exercise. 3. Hypertension, well controlled. 4. Anemia, postop stable. 5. Hyperlipidemia. - She is on gemfibrozil twice a day. 6. Diabetes mellitus, well controlled. - Continue Lantus at nighttime 10 unit. 7. Deep vein thrombosis of Right upper arm - 2.2 to PICC line placement - PO eliquis for now Dispo: Currently patient is awaiting home health set up. Has been medically discharged from the hospital. Discharge Plan: Home Plan to discharge in: 24 Hours - Code Status/Comfort Care Code Status Assessed: Yes Critical Care: No
[2018-07-31] MEDS: VANCOMYCIN 2.5 GM in NA CHLORIDE 0.9% 500 ML IVPB SCH (16:49)
[2018-07-31] MEDS ORDERED: DIPHENHYDRAMINE 25 MG TAB/CAP PO ONE (17:00)
[2018-07-31] MEDS: INSULIN GLARGINE 100 UNITS/ML SQ SCH (21:44)
[2018-07-31] MEDS ORDERED: NA CHLORIDE 0.9% 50 ML ONE (23:08)
[2018-08-01 04:07] LABS: Absolute Lymphocytes (CBC) 1.2 K/uL (0.7-4.9); Absolute Monocytes 0.5 K/uL (0.1-1.3); Absolute Neutrophil 5.8 K/uL (1.8-8.0); Basophils % 0.4 % (0-1.3); Eosinophils % 1.5 % (0-4.4); Hematocrit 27.6 % (36.0-45.0); Lymphocytes % 15.4 % (15.3-44.8); MCH 27.6 pg (27.0-35.0); MCV 81.9 fL (80-100); MPV 9.1 fL (7.6-11.3); Monocytes % 6.4 % (3.3-12.3); RBC Red Blood Cell Count 3.37 M/uL (3.86-4.86)
[2018-08-01 04:37] LABS: Albumin 2.2 g/dL (3.4-5.0); Bilirubin Total 0.5 mg/dL (0.2-1.0); Potassium 3.4 mmol/L (3.5-5.1); Protein, Total 6.3 g/dL (6.4-8.2)
[2018-08-01] MEDS: CLINDAMYCIN HCL 150 MG CAP PO SCH (05:31)
[2018-08-01 05:53] LABS: Hematocrit 27.5 % (36.0-45.0)
[2018-08-01] MEDS: INSULIN -REGULAR HUMAN 50 UNIT/0.5 ML ML SQ SCH (07:30)
[2018-08-01] MEDS: APIXABAN 5 MG TABLET PO SCH (09:16)
[2018-08-01] MEDS: GEMFIBROZIL 600 MG TAB PO SCH (09:16)
[2018-08-01] MEDS: ESCITALOPRAM 20 MG TAB PO SCH (09:16)
[2018-08-01] MEDS: SODIUM HYPOCHLORITE 0.25% 473 ML TOP SCH (09:17)
--- NOTE | 2018-08-01 11:29 | P.PN ---
Subjective Date of Service: 08/01/18 Chief Complaint: cellulitis Patient seen and examined at bedside with RN. Chart reviewed. Daughter to do wound care changes. DC now Review of Systems 10-point ROS is otherwise unremarkable Physical Examination - Vital Signs Temperature: 97.1 F Blood Pressure: 131/70 Pulse: 59 Respirations: 18 Pulse Ox (%): 96 - Physical Exam General: Alert, In no apparent distress HEENT: Atraumatic, PERRLA, EOMI Neck: Supple, JVD not distended Respiratory: Clear to auscultation bilaterally, Normal air movement Cardiovascular: Regular rate/rhythm, Normal S1 S2 Gastrointestinal: Normal bowel sounds, No tenderness Musculoskeletal: No tenderness Integumentary: No rashes Neurological: Normal speech, Normal tone, Normal affect Lymphatics: No axilla or inguinal lymphadenopathy - Studies Medications List Reviewed: Yes Assessment And Plan - Plan Assessment and Plan: 1. Left groin Benoit disease involving the vulva and perineal area. - Status post incision and drainage postop day 6. - Patient is now switched to oral antibiotics - DC now 2. Morbid obesity. -Advised to stay active with diet and exercise. 3. Hypertension, well controlled. 4. Anemia, postop stable. 5. Hyperlipidemia. - She is on gemfibrozil twice a day. 6. Diabetes mellitus, well controlled. - Continue Lantus at nighttime 10 unit. 7. Deep vein thrombosis of Right upper arm - 2.2 to PICC line placement - PO eliquis for now Dispo: DC now with Daughter doing wound care at home Discharge Plan: Home Plan to discharge in: 24 Hours - Code Status/Comfort Care Code Status Assessed: Yes Critical Care: No
== END 2018-08-01 11:47 | disposition home or self-care (01) | DRG 748 ==
LOC: ER 09:20 → ERHOLD 11:19 → 2ND 12:44 → 3RD-ICU 22:27 → 4TH 07-23 20:40
PROVIDERS: ADMIT Internal Medicine Hematology & Oncology; ATTEND Family Medicine
PROC: 0JBC0ZZ Excision of Pelvic Region Subcutaneous Tissue and Fascia, Open Approach (ICD-10-PCS; 2018-07-21)
PROC: 0JBC0ZZ Excision of Pelvic Region Subcutaneous Tissue and Fascia, Open Approach (ICD-10-PCS; 2018-07-22)
PROC: 02HV33Z Insertion of Infusion Device into Superior Vena Cava, Percutaneous Approach (ICD-10-PCS; 2018-07-22)
PROC: 0JQC0ZZ Repair Pelvic Region Subcutaneous Tissue and Fascia, Open Approach (ICD-10-PCS; principal; 2018-07-26 12:00)
DX: N76.89 Other specified inflammation of vagina and vulva (principal); L03.314 Cellulitis of groin; I82.621 Acute embolism and thrombosis of deep veins of right upper extremity; Z68.42 Body mass index [BMI] 45.0-49.9, adult; N76.4 Abscess of vulva; E11.9 Type 2 diabetes mellitus without complications; I10 Essential (primary) hypertension; E78.5 Hyperlipidemia, unspecified; E78.00 Pure hypercholesterolemia, unspecified; F32.9 Major depressive disorder, single episode, unspecified; E66.01 Morbid (severe) obesity due to excess calories; D64.9 Anemia, unspecified
CPT/HCPCS: 36415; 71045; 72193; 80048; 80053; 80076; 80202; 81003; 81015; 82962; 83605; 83735; 84132; 85014; 85018; 85025; 86850; 86900; 86901; 87040; 87070; 87075; 87205; 88304; 93971; 96361; 96374; 96375; 97163; 99285; J0330; J0360; J0610; J1650; J2001; J2175; J2250; J2405; J2543; J2710; J2997; J3010; J3475; J7030; J7060; P9016; Q9967